=== PATIENT | female | born 1945 | race African-American/Black ===

== ENCOUNTER 2016-04-07 15:06 | Emergency (ER) | payer MEDICARE, MEDICAID ==
[~2016-04-07] VITALS: Ht 162.6 cm; Wt 72.1 kg
[~2016-04-07 15:06] MED LIST: LISINOPRIL20 MG ORAL; NORCO 5-325 TA1 EACH ORAL; OXYCODONE HCL10 MG ORAL; SOMA350 MG PO
[2016-04-07] MEDS ORDERED: Acetaminophen 500mg (ES) tab ORAL ONE (15:30)
--- NOTE | 2016-04-07 16:23 | Emergency Room Report ---
History of Present Illness General Chief Complaint: Lower Extremity Injury Source: Patient Present Illness HPI 70-year-old female presents to emergency Department complaining of right faust and knee pain status post mechanical slip and fall getting on the bus 20 minutes ago. Patient denies open lesions of the skin. Patient reports pain with weight bearing and mild swelling to the anterior right faust. Patient denies previous injury she denies hitting her head or losing consciousness. Denies numbness tingling or loss of sensation or gross motor movements of the extremities, incontinence of bowel or bladder. Denies CP, Palpitations, LOC, AMS , dizziness, Changes in Vision, Sensation, paresthesias, or a sudden severe headache. Allergies: Coded Allergies: No Known Allergies (Unverified , 10/24/13) Patient History Past Medical History: see triage record Past Surgical History: none Pertinent Family History: none Now: No Immunizations: UTD Reviewed Nursing Documentation: PMH: Agreed, PSxH: Agreed Nursing Documentation-PMH Hx Hypertension: Yes Review of Systems All Other Systems: negative except mentioned in HPI Physical Exam Vital Signs Date Time Temp Pulse Resp B/P Pulse Ox O2 Delivery O2 Flow Rate FiO2 04/07/16 15:03 98.1 72 16 152/82 100 Room Air Sp02 EP Interpretation: reviewed, normal General Appearance: no apparent distress, alert, GCS 15, non-toxic Head: normocephalic, atraumatic Eyes: bilateral eye PERRL, bilateral eye normal inspection ENT: hearing grossly normal, normal pharynx, no angioedema, normal voice Neck: full range of motion, supple/symm/no masses Respiratory: chest non-tender, lungs clear, normal breath sounds, speaking full sentences Cardiovascular #1: regular rate, rhythm, no edema Gastrointestinal: no rebound Musculoskeletal: back normal, gait/station normal, normal range of motion, no calf tenderness, swelling - small hematoma noted to the right anterior faust. , other - no increased laxity upon varus or valgus stressing, negative anterior and posterior drawer signs of the right knee on examination, tender - TTP to the anterior right faust, and right knee. Neurologic: alert, oriented x3, responsive, motor strength/tone normal, sensory intact, speech normal Psychiatric: judgement/insight normal, memory normal, mood/affect normal, no suicidal/homicidal ideation Reflexes: 4+ bicep (R), 4+ bicep (L), 4+ tricep (R), 4+ tricep (L), 4+ knee (R) , 4+ knee (L) Skin: normal color, no rash, warm/dry, well hydrated Lymphatic: no adenopathy Medical Decision Making PA Attestation Dr. Kaba is my supervising Physician whom patient management has been discussed with. Diagnostic Impression: Primary Impression: Contusion Qualified Codes: S80.11XA - Contusion of right lower leg, initial encounter Additional Impression: Knee contusion Qualified Codes: S80.01XA - Contusion of right knee, initial encounter ER Course Pt. presents to the ED c/o faust and knee pain status post slipping while getting on the bus 20 minutes ago. Denies hitting her head or loss of consciousness. Ddx considered but are not limited to Fracture, dislocation, contusion, Sprain/ Strain/Spasm, Vital signs: are WNL, pt. is afebrile H&PE are most consistent with faust and knee contusion will rule out fractures with imaging ORDERS: - X-ray Right Tib/Fib 2 views - negative for fx, Dislocation, or significant soft tissue injury, per preliminary read in ED by Dr. Kaba. - X-ray Right Knee 3 views - negative for fx, Dislocation, or significant soft tissue injury, per preliminary read in ED by Dr. Kaba. ED INTERVENTIONS: - 500mg Tyleol PO DISCHARGE: At this time pt. is stable for d/c to home. Will provide printed patient care instructions, and any necessary prescriptions. Care plan and follow up instructions have been discussed with the patient prior to discharge. Last Vital Signs Date Time Temp Pulse Resp B/P Pulse Ox O2 Delivery O2 Flow Rate FiO2 04/07/16 15:03 98.1 72 16 152/82 100 Room Air Disposition: HOME, SELF-CARE Condition: Stable Scripts Acetaminophen* (TYLENOL EXTRA STRENGTH*) 500 Mg Tablet 500 MG ORAL Q8H, #30 TAB 0 Refills Prov: Stefanie Anaya 04/07/16 Referrals: NON PHYSICIAN (PCP) Patient Instructions: Contusion Additional Instructions: Take medications as directed. Follow up with PCP in 3-5 days Return sooner to ED if new symptoms occur, or current symptoms become worse. Stefanie Anaya Apr 07, 2016 16:23
[2016-04-07] MEDS ORDERED: TYLENOL EXTRA500 MG ORAL (16:24)
--- NOTE | 2016-04-07 16:47 | Diagnostic Imaging Report ---
Indication: Pain 3 views of the right knee were obtained. Findings: Some narrowing and osteophyte formation demonstrated at multiple compartments of the knee. There is no fracture identified. No malalignment seen. Bones appear slightly osteopenic. Impression: Osteoarthritis
--- NOTE | 2016-04-07 16:47 | Diagnostic Imaging Report ---
Indication: Pain Comparison: None Findings: Two views of the right tibia and fibula were obtained. No acute fracture, malalignment, or periosteal reaction are identified. Soft tissues are unremarkable. Osteoarthritis of the knee noted. Impression: Negative examination of the tibia and fibula
[2016-04-07 16:55] VITALS: BP 146/78
== END 2016-04-07 16:57 | disposition home or self-care (01) ==
LOC: EDBD 15:06 → EMR 15:41
DX: S80.11XA Contusion of right lower leg, initial encounter (principal); S80.01XA Contusion of right knee, initial encounter; W01.0XXA Fall on same level from slipping, tripping and stumbling without subsequent striking against object, initial encounter; Y92.521 Bus station as the place of occurrence of the external cause; I10 Essential (primary) hypertension; M17.11 Unilateral primary osteoarthritis, right knee
CPT/HCPCS: 99284

== ENCOUNTER 2016-11-09 05:49 | Emergency (ER) | payer MEDICARE, MEDICAID ==
[~2016-11-09] VITALS: Ht 162.6 cm; Wt 73.5 kg
[~2016-11-09 05:49] MED LIST changes: +TYLENOL EXTRA500 MG ORAL
[2016-11-09] MEDS ORDERED: EYE DROPS15 ML OP (06:15)
[2016-11-09 06:24] VITALS: BP 174/82
--- NOTE | 2016-11-09 07:08 | Emergency Room Report ---
History of Present Illness General Chief Complaint: Lower Extremity Injury Source: Patient Present Illness HPI 71-year-old female with hypertension and arthritis presenting with right knee pain for the last 3 weeks. Patient states that she has fallen on her right knee 3 times the first which was in 2011. Patient states intermittent swelling to right knee that goes away with ice and rest. Patient has been taking naproxen which relieves pain. Patient states that even when she has pain she is still able to walk with a slight limp. Denies any redness warmth or swelling to the joint denies any fever chills or diaphoresis. Patient states she has an appointment with her primary care doctor but has not seen him yet. Patient has never seen an orthopedic doctor. Denies any chest pain or shortness of breath. Denies any calf swelling. Allergies: Coded Allergies: No Known Allergies (Unverified , 10/24/13) Patient History Past Medical History: HTN Past Surgical History: none Pertinent Family History: none Last Menstrual Period: NONE Nursing Documentation-PMH Hx Hypertension: Yes Review of Systems Musculoskeletal: Reports: joint pain All Other Systems: negative except mentioned in HPI Physical Exam Vital Signs Date Time Temp Pulse Resp B/P Pulse Ox O2 Delivery O2 Flow Rate FiO2 11/09/16 06:10 97.9 58 18 174/82 98 Room Air General Appearance: normal inspection, well appearing, no apparent distress, alert, GCS 15, non-toxic Head: normocephalic, atraumatic Eyes: bilateral eye EOMI, bilateral eye PERRL, bilateral eye normal inspection ENT: normal ENT inspection, normal pharynx, normal voice, moist mucus membranes Neck: normal inspection, full range of motion, supple, no bony tend Respiratory: normal inspection, lungs clear, normal breath sounds, no respiratory distress, no retraction, no wheezing, speaking full sentences, chest symmetrical Cardiovascular #1: normal inspection, regular rate, rhythm, no edema, normal capillary refill Gastrointestinal: normal inspection, non tender, soft, non-distended, no guarding Musculoskeletal: normal inspection, back normal, normal range of motion, other - Right knee joint without any gross bony deformities. No warmth no swelling. No effusion. Full range of motion. Patient walking with slight limp. No calf swelling or tenderness. Neurologic: normal inspection, alert, oriented x3, responsive, motor strength/ tone normal, sensory intact, speech normal Medical Decision Making Diagnostic Impression: Primary Impression: Knee pain, chronic Qualified Codes: M25.561 - Pain in right knee; G89.29 - Other chronic pain ER Course 71 yo M F with knee pain x 3 weeks DDX: arthritis / degen disease Septic joint unlikely as patient not toxic no fever no chills no warm able to move knee Plan: pain control with motrin, XR ER course: Patient reports improvement of pain with motrin. RUTHY bandage applied. XR reveals mild effusion, degen disease, no disloc/fx Disposition: Patient is to be discharged home with a prescription of motrin. Patient educated to rest, ice, and elevate extremity and to avoid vigorous activity. Strict precautions discussed with patient on when to return to the emergency room including increased redness or swelling joints, increased pain/swelling of extremity, fever or chills, which could indicate severe illness. Patient is to follow up with their primary care doctor within 5 days. Patient also instructed to follow up with an orthopedic doctor if continuing to have mild/moderate knee pain as he may need further outpatient imaging. Patient agrees with plan. Last Vital Signs Date Time Temp Pulse Resp B/P Pulse Ox O2 Delivery O2 Flow Rate FiO2 11/09/16 06:24 97.9 18 174/82 98 Room Air 11/09/16 06:10 58 Status: improved Disposition: HOME, SELF-CARE Condition: Improved Scripts Ibuprofen* (MOTRIN*) 600 Mg Tablet 600 MG ORAL Q8H Y for For Pain, #30 TAB 0 Refills Prov: Easton Whiting M.D. 11/09/16 Referrals: HARSHIL PARKER (PCP) Easton Whiting M.D. Nov 09, 2016 07:08
[2016-11-09] MEDS ORDERED: IBUPROFEN600 MG ORAL (07:58)
[2016-11-09 08:10] VITALS: BP 168/80
[2016-11-09 08:11] VITALS: BP 168/80
--- NOTE | 2016-11-09 12:10 | Diagnostic Imaging Report ---
Indication: PAIN Technique: 4 views of the right knee Comparison: None Findings: No acute fractures. No dislocations. There is medial compartmental degenerative joint space narrowing and medial degenerative proliferative change. No suprapatellar effusion Impression: Degenerative changes. No acute bony trauma
== END 2016-11-09 08:11 | disposition home or self-care (01) ==
LOC: EMR 06:38
DX: M25.561 Pain in right knee (principal); G89.29 Other chronic pain; I10 Essential (primary) hypertension
CPT/HCPCS: 99283

== ENCOUNTER 2020-03-09 13:08 | Emergency (ER) | payer MEDICARE, MEDICAID ==
[~2020-03-09] VITALS: Ht 162.6 cm; Wt 77.1 kg
[~2020-03-09 13:08] MED LIST changes: +EYE DROPS15 ML OP; +IBUPROFEN600 MG ORAL
[2020-03-09 13:11] VITALS: BP 205/89
--- NOTE | 2020-03-09 13:42 | Emergency Room Report ---
Physical Exam Vital Signs Date Time Temp Pulse Resp B/P (MAP) Pulse Ox O2 Delivery O2 Flow Rate FiO2 03/09/20 13:11 98.1 79 20 205/89 (127) 93 Room Air Medical Decision Making Last Vital Signs Date Time Temp Pulse Resp B/P (MAP) Pulse Ox O2 Delivery O2 Flow Rate FiO2 03/09/20 13:11 98.1 79 20 205/89 (127) 93 Room Air Referrals: HARSHIL PARKER (PCP) Stefanie Anaya Mar 09, 2020 13:42
--- NOTE | 2020-03-09 14:20 | Emergency Room Report ---
History of Present Illness General Chief Complaint: Flu Like Symptoms Source: Patient Present Illness HPI 74 YO female presents to the Ed c/o SOB and cough x 3 weeks. Pt. denies hx of asthma, She reports hx of heart murmur. Pt. denies fevers or chills. Pt. reports she has not been tested for COVID. Pt. reports taking lisinopril for HTN . Pt. states her symptoms are worse when lying down or exerting herself. Pt. reports symptoms have been constant with no improvement. She denies CP, but reports ribcage pain on the sides and posteriorly with coughing. She denies dizziness, SINGH, syncope, or palpitations. Pt. reports nausea and diarrhea. She denies vomiting. She denies blood in the Stool or black tarry stools. She denies abdominal tenderness. Allergies: Coded Allergies: No Known Allergies (Unverified , 10/24/13) COVID-19 Screening Contact w/high risk pt: No Experienced COVID-19 symptoms?: Yes COVID-19 Testing performed AUDITING CODER: No Patient History Past Medical History: see triage record Past Surgical History: none Pertinent Family History: none Last Menstrual Period: na Reviewed Nursing Documentation: PMH: Agreed; PSxH: Agreed Nursing Documentation-PMH Past Medical History: No History, Except For Hx Hypertension: Yes Review of Systems All Other Systems: negative except mentioned in HPI Physical Exam Vital Signs Date Time Temp Pulse Resp B/P (MAP) Pulse Ox O2 Delivery O2 Flow Rate FiO2 03/09/20 13:11 98.1 79 20 205/89 93 Room Air Sp02 EP Interpretation: reviewed, normal General Appearance: no apparent distress - other than persisitent coughing, alert, GCS 15, non-toxic Head: normocephalic, atraumatic Eyes: bilateral eye normal inspection, bilateral eye PERRL ENT: hearing grossly normal, normal pharynx, normal voice, uvula midline Neck: full range of motion Respiratory: chest non-tender, lungs clear, normal breath sounds, crackles - slight crackles at the bases bilaterally, speaking full sentences - with intermittent bouts of coughing. Cardiovascular #1: regular rate, rhythm, no edema, normal capillary refill Cardiovascular #2: 2+ dorsalis pedis (R), 2+ dorsalis pedis (L) Gastrointestinal: non tender, soft Musculoskeletal: normal range of motion, gait/station normal, non-tender Neurologic: alert, motor strength/tone normal, oriented x3, sensory intact, responsive, speech normal Psychiatric: judgement/insight normal Skin: normal color Lymphatic: no adenopathy Medical Decision Making PA Attestation Dr. Colvin is my supervising Physician whom patient management has been discuss ed with. Diagnostic Impression: Primary Impression: Upper respiratory infection with cough and congestion Additional Impression: Suspected COVID-19 virus infection ER Course 74 YO female presents to the Ed c/o SOB and cough x 3 weeks. Pt. denies hx of asthma, She reports hx of heart murmur. Pt. denies fevers or chills. Pt. reports she has not been tested for COVID. Pt. reports taking lisinopril for HTN . Pt. states her symptoms are worse when lying down or exerting herself. Pt. reports symptoms have been constant with no improvement. She denies CP, but reports ribcage pain on the sides and posteriorly with coughing. She denies dizziness, SINGH, syncope, or palpitations. Pt. reports nausea and diarrhea. She denies vomiting. She denies blood in the Stool or black tarry stools. She denies abdominal tenderness. Ddx considered but are not limited to URI, pneumonia, PE, CHF/UT, strep pharyngitis, meningitis, COVID-19 Vital signs: Pt. is afebrile, the remaining VS are WNL H&PE are most consistent with URI- no meningeal signs, oropharynx is not inv olved, no evidence of bacterial infection at this time. --- The patient is nontoxic in appearance once placed on monitor O2 saturations remained 97% to 100%. She is non-tachycardic non-tachypneic. Patient does not appear to be in respiratory distress at this time. She has no increased respiratory effort. ORDERS: -CBC: WNL -CMP: WNL -Troponin: Negative - COVID-19: Pending ( 2 day ) ED INTERVENTIONS: -Dexamethasone - Azithromycin 500mg PO Pt. will continue remainder of z-pack dosage as out patient. --- Collaborative decision made by patient and myself regarding patient being a candidate for outpatient treatment. After going over oxygen saturation without need for supplemental oxygen as well as imaging findings, I explained to the patient that with her current results and physical presentation I do not feel that she needs hospital admission at this time. The patient agrees with me and collaboratively decides to ultimately be discharged home after receiving course of steroids here. I reiterated to the patient that if she has any worsening of symptoms or changes her mind and wants to be reevaluated but she should not hesitate and she is welcome to come back at any point. Patient verbalizes her agreement with and understanding of this invitation. --PT. EDUCATION: Outpatient Tx of COVID-19, return precautions, and self quarantine. DISCHARGE: At this time pt. is stable for d/c to home. Will provide printed patient care instructions, and any necessary prescriptions. Care plan and follow up instructions have been discussed with the patient prior to discharge. Labs Test 03/09/20 13:47 White Blood Count 4.7 K/UL (4.8-10.8) Red Blood Count 4.48 M/UL (4.20-5.40) Hemoglobin 13.8 G/DL (12.0-16.0) Hematocrit 41.8 % (37.0-47.0) Mean Corpuscular Volume 93 FL (80-99) Mean Corpuscular Hemoglobin 30.9 PG (27.0-31.0) Mean Corpuscular Hemoglobin Concent 33.1 G/DL (32.0-36.0) Red Cell Distribution Width 13.1 % (11.6-14.8) Platelet Count 251 K/UL (150-450) Mean Platelet Volume 6.4 FL (6.5-10.1) Neutrophils (%) (Auto) 53.6 % (45.0-75.0) Lymphocytes (%) (Auto) 36.7 % (20.0-45.0) Monocytes (%) (Auto) 6.8 % (1.0-10.0) Eosinophils (%) (Auto) 2.2 % (0.0-3.0) Basophils (%) (Auto) 0.8 % (0.0-2.0) Sodium Level 139 MMOL/L (136-145) Potassium Level 4.3 MMOL/L (3.5-5.1) Chloride Level 103 MMOL/L (98-107) Carbon Dioxide Level 30 MMOL/L (21-32) Anion Gap 6 mmol/L (5-15) Blood Urea Nitrogen 19 mg/dL (7-18) Creatinine 0.9 MG/DL (0.55-1.30) Estimat Glomerular Filtration Rate > 60 mL/min (>60) Glucose Level 88 MG/DL (74-106) Calcium Level 8.9 MG/DL (8.5-10.1) Total Bilirubin 0.3 MG/DL (0.2-1.0) Aspartate Amino Transf (AST/SGOT) 16 U/L (15-37) Alanine Aminotransferase (ALT/SGPT) 16 U/L (12-78) Alkaline Phosphatase 80 U/L (46-116) Troponin I 0.012 ng/mL (0.000-0.056) Total Protein 8.1 G/DL (6.4-8.2) Albumin 3.4 G/DL (3.4-5.0) Globulin 4.7 g/dL Albumin/Globulin Ratio 0.7 (1.0-2.7) Lipase 47 U/L (73-393) EKG Diagnostic Results Troponin ordered: Yes When was troponin ordered?: Mar 09, 2020 EKG Time: 13:41 Rate: normal - 69 Rhythm: NSR ST Segments: no acute changes ASA given to the pt in ED: No PA Scribe Text This Interpretation was scribed by ROXANNA Anaya. Chest X-Ray Diagnostic Results Chest X-Ray Diagnostic Results : Chest X-Ray Ordered: Yes # of Views/Limited/Complete: 1 View Indication: Shortness of Breath EP Interpretation: Yes ROXANNA Xray: Interpretation reviewed, by supervising MD Interpretation: no pneumothorax, no acute cardiopulmonary disease, other - Lower lobe opacities. Impression: Other - abnormal Electronically Signed by: Stefanie Anaya PA-C Last Vital Signs Date Time Temp Pulse Resp B/P (MAP) Pulse Ox O2 Delivery O2 Flow Rate FiO2 03/09/20 13:21 79 20 Room Air 03/09/20 13:11 98.1 205/89 (127) 93 Status: improved Disposition: HOME, SELF-CARE Condition: Stable Scripts Albuterol Sulfate* (Albuterol Sulfate Hfa*) 8.5 Gm Hfa.aer.ad 2 PUFF INH Q3H, #1 INH Prov: Stefanie Anaya 03/09/20 Azithromycin* (ZITHROMAX*) 250 Mg Tablet 250 MG ORAL DAILY, #6 TAB 0 Refills Take two tables once daily for 1 day, then one tablet once daily for 4 days. Prov: Stefanie Anaya 03/09/20 Prednisone* (PREDNISONE*) 20 Mg Tablet 40 MG ORAL DAILY for 4 Days, #8 TAB Prov: Stefanie Anaya 03/09/20 Acetaminophen/Dextromethorphan (Robitussin Cough-Sore Throat) 237 Ml Liquid 5 ML PO Q6HR, #237 ML Prov: Stefanie Anaya 03/09/20 Referrals: HARSHIL PARKER (PCP) Patient Instructions: Upper Respiratory Infection, Adult, [id number]-[id number] Additional Instructions: Take medications as directed. SELF QUARANTINE AT HOME, your results will be available in 2-3 days. !! Return sooner to ED if new symptoms occur, or current symptoms become worse. !! Follow up with a Primary Care Provider in 3-5 days, even if your symptoms have resolved. --Please review list of primary care clinics, if you do not already have a primary care provider * Review provided information on outpatient treatment for COVID-19/upper res piratory illness. - Please note that this Emergency Department Report was dictated using [employer]dental hygienist technology software, occasionally this can lead to erroneous entry secondary to interpretation by the dictation equipment. Stefanie Anaya Mar 09, 2020 14:20
--- NOTE | 2020-03-09 14:21 | Diagnostic Imaging Report ---
EXAM: XR Chest, 1 View CLINICAL HISTORY: SOB TECHNIQUE: Frontal view of the chest. COMPARISON: None FINDINGS: Hardware: None. Lungs/pleura: Lower lung opacities. No pleural effusion or pneumothorax. Heart/mediastinum: Enlargement of the cardiac silhouette. Soft tissues: Unremarkable. Bones: No acute fracture. Degenerative changes of the spine. Upper abdomen: Normal. IMPRESSION: Lower lung opacities may represent atelectasis versus infectious/inflammatory process.
[2020-03-09 14:33] LABS: BASOPHILS % (AUTO) 0.8 % (0.0-2.0); EOSINOPHILS % (AUTO) 2.2 % (0.0-3.0); HEMATOCRIT 41.8 % (37.0-47.0); HEMOGLOBIN 13.8 G/DL (12.0-16.0); LYMPHOCYTES % (AUTO) 36.7 % (20.0-45.0); MEAN CORPUSCULAR VOLUME 93 FL (80-99); MONOCYTES % (AUTO) 6.8 % (1.0-10.0); NEUTROPHILS % (AUTO) 53.6 % (45.0-75.0); PLATELET COUNT 251 K/UL (150-450); RED BLOOD COUNT 4.48 M/UL (4.20-5.40); RED CELL DISTRIBUTION WIDTH 13.1 % (11.6-14.8); WHITE BLOOD COUNT 4.7 K/UL (4.8-10.8)
[2020-03-09 14:47] LABS: ANION GAP 6 mmol/L (5-15); BLOOD UREA NITROGEN 19 mg/dL (7-18); CALCIUM 8.9 MG/DL (8.5-10.1); CARBON DIOXIDE 30 MMOL/L (21-32); CHLORIDE 103 MMOL/L (98-107); CREATININE 0.9 MG/DL (0.55-1.30); POTASSIUM 4.3 MMOL/L (3.5-5.1); SODIUM 139 MMOL/L (136-145)
[2020-03-09 14:51] LABS: ALANINE AMINOTRANSFERASE 16 U/L (12-78); ALBUMIN 3.4 G/DL (3.4-5.0); ALBUMIN/GLOBULIN RATIO 0.7 (1.0-2.7); ALKALINE PHOSPHATASE 80 U/L (46-116); ASPARTATE AMINO TRANSFERASE 16 U/L (15-37); BILIRUBIN,TOTAL 0.3 MG/DL (0.2-1.0)
[2020-03-09 15:10] VITALS: BP 161/85
[2020-03-09] MEDS ORDERED: Azithromycin 250mg tab ORAL ONE (15:45)
[2020-03-09] MEDS ORDERED: dexAMETHasone 10mg/ml Inj IV ONE (15:45)
[2020-03-09] MEDS ORDERED: ZITHROMAX250 MG ORAL (16:11)
[2020-03-09] MEDS ORDERED: ROBITUSSIN COU237 M3 PO (16:11)
[2020-03-09] MEDS ORDERED: PREDNISONE20 MG ORAL (16:11)
[2020-03-09] MEDS ORDERED: ALBUTEROL SULF8.5 G1 INH (16:11)
[2020-03-09 16:25] VITALS: BP 156/71
== END 2020-03-09 16:25 | disposition home or self-care (01) ==
LOC: EMR 13:32
DX: J06.9 Acute upper respiratory infection, unspecified (principal); Z20.828 Contact with and (suspected) exposure to other viral communicable diseases; I10 Essential (primary) hypertension; Z79.899 Other long term (current) drug therapy
CPT/HCPCS: 36415; 71045; 80053; 83690; 84484; 85025; 93005; 96374; 99284; U0004